=== PATIENT | male | born 1970 | race Caucasian/White ===

== ENCOUNTER 2017-08-16 03:48 | Emergency (ER) | payer SELFPAY ==
[2017-08-16] MEDS ORDERED: Sodium Chloride 0.9% 10 ML Syringe FLUSH PRN (03:58)
[2017-08-16 04:30] LABS: CHLORIDE,CL 102 mmol/L (98-107); SODIUM,NA 141 mmol/L (136-145)
[2017-08-16] MEDS ORDERED: HYDROmorphone 1 MG/ML Syringe IVPUSH ONE ×3 (04:35→07:09)
[2017-08-16] MEDS ORDERED: Ondansetron 4 MG/2 ML SDV IVPUSH ONE (04:37)
--- NOTE | 2017-08-16 04:50 | EDM.PDOC ---
ED HPI GENERAL MEDICAL PROBLEM - General Chief Complaint: Abdominal Pain Stated Complaint: abdominal pain Time Seen by Provider: 08/16/17 04:05 Source of Information: Reports: Patient History Limitations: Reports: No Limitations - History of Present Illness INITIAL COMMENTS - FREE TEXT/NARRATIVE: Patient is a 46-year-old gentleman known to have diverticular disease by history presents to the ER with severe abdominal pain about 8 out of 10 started around 8 PM on 08/15/17 pain described as constant and very uncomfortable. Patient has had other episodes like this in the past but not as severe Onset: Sudden Duration: Hour(s):, Getting Worse Location: Reports: Abdomen Quality: Reports: Stabbing Severity: Severe Improves with: Reports: None Worsens with: Reports: None Context: Reports: Other (Illness) Associated Symptoms: Reports: Nausea/Vomiting Middle Abdomen Pain Score (Numeric/FACES): 8 - Related Data Allergies Allergy/AdvReac Type Severity Reaction Status Date / Time No Known Allergies Allergy Verified 08/16/17 04:38 Past Medical History Gastrointestinal History: Reports: Diverticulosis Other Genitourinary History: Right Kidney removal 1977 Social & Family History - Tobacco Use Smoking Status *Q: Current Every Day Smoker Years of Tobacco use: 30 Packs/Tins Daily: 0.2 - Alcohol Use Days Per Week of Alcohol Use: 7 Number of Drinks Per Day: 5 Total Drinks Per Week: 35 - Recreational Drug Use Recreational Drug Use: No ED ROS GENERAL - Review of Systems Review Of Systems: See Below Constitutional: Reports: Fever, Chills, Weakness HEENT: Reports: No Symptoms Respiratory: Reports: No Symptoms Cardiovascular: Reports: No Symptoms Endocrine: Reports: No Symptoms GI/Abdominal: Reports: Abdominal Pain, Nausea, Vomiting : Reports: No Symptoms Musculoskeletal: Reports: No Symptoms Skin: Reports: No Symptoms Neurological: Reports: No Symptoms Psychiatric: Reports: No Symptoms Hematologic/Lymphatic: Reports: No Symptoms Immunologic: Reports: No Symptoms ED EXAM, GI/ABD - Physical Exam Exam: See Below Exam Limited By: No Limitations General Appearance: Alert, WD/WN, No Apparent Distress Eyes: Bilateral: Normal Appearance, EOMI Ears: Normal External Exam, Normal Canal, Hearing Grossly Normal, Normal TMs Nose: Normal Inspection, Normal Mucosa, No Blood Throat/Mouth: Normal Inspection, Normal Lips, Normal Teeth, Normal Gums, Normal Oropharynx, Normal Voice, No Airway Compromise Head: Atraumatic, Normocephalic Neck: Normal Inspection, Supple, Non-Tender, Full Range of Motion Respiratory/Chest: No Respiratory Distress, Lungs Clear, Normal Breath Sounds, No Accessory Muscle Use, Chest Non-Tender Cardiovascular: Normal Peripheral Pulses, Regular Rate, Rhythm, No Edema, No Gallop, No JVD, No Murmur, No Rub GI/Abdominal Exam: Distended, Guarding, Tender, Abnormal Bowel Sounds ( Hyperactive) (Male) Exam: Deferred Rectal (Males) Exam: Deferred Back Exam: Normal Inspection, Full Range of Motion, NT Extremities: Normal Inspection, Normal Range of Motion, Non-Tender, Normal Capillary Refill, No Pedal Edema Neurological: Alert, Oriented, CN II-XII Intact, Normal Cognition, Normal Gait, Normal Reflexes, No Motor/Sensory Deficits Psychiatric: Normal Affect, Normal Mood Course - Vital Signs Last Recorded V/S: Last Vital Signs Temp 98.4 F 08/16/17 03:55 Pulse 92 08/16/17 07:05 Resp 17 08/16/17 07:05 BP 132/92 H 08/16/17 07:05 Pulse Ox 97 08/16/17 07:05 - Orders/Labs/Meds Orders: Active Orders 24 hr Category Date Time Status Abdomen Pelvis w Cont [CT] Stat Exams 08/16/17 03:56 Ordered Sodium Chloride 0.9% [Normal Saline] 1,000 ml Med 08/16/17 05:00 Ordered IV ASDIRECTED Sodium Chloride 0.9% [Saline Flush] Med 08/16/17 03:58 Active 10 ml FLUSH ASDIRECTED PRN NG [Nasogastric Orogastric Tube Insertion] [OM.PC] Oth 08/16/17 06:02 Ordered Routine Saline Lock Insert [OM.PC] Routine Oth 08/16/17 03:58 Ordered Medication Orders Sodium Chloride (Normal Saline) 1,000 mls @ 500 mls/hr IV ASDIRECTED KERRY Last Admin: 08/16/17 04:55 Dose: 500 mls/hr Sodium Chloride (Saline Flush) 10 ml FLUSH ASDIRECTED PRN PRN Reason: Keep Vein Open Labs: Laboratory Tests 08/16/17 08/16/17 Range/Units 04:07 04:07 WBC 15.1 H (4.0-10.2) K/uL RBC 5.44 H (4.33-5.41) M/uL Hgb 17.5 H D (13.1-16.8) g/dL Hct 50.1 H (39.0-49.0) % MCV 92.1 (84.0-98.0) fL MCH 32.2 (28.2-33.3) pg MCHC 34.9 (31.7-36.0) g/dL RDW 13.5 (11.2-14.1) % Plt Count 269 D (150-350) K/uL Neut % (Auto) 77.2 (45.0-80.0) % Lymph % (Auto) 14.6 (10.0-50.0) % [place] % (Auto) 7.4 (2.0-14.0) % Eos % (Auto) 0.7 (0.0-5.0) % Baso % (Auto) 0.1 (0.0-2.0) % Neut # (Auto) 11.61 H (1.40-7.00) K/uL Lymph # (Auto) 2.20 (0.50-3.50) K/uL [place] # (Auto) 1.11 H (0.00-1.00) K/uL Eos # (Auto) 0.11 (0.00-0.50) K/uL Baso # (Auto) 0.02 (0.00-0.20) K/uL Sodium 141 (136-145) mmol/L Potassium 3.9 (3.5-5.1) mmol/L Chloride 102 (98-107) mmol/L Carbon Dioxide 27.2 (21.0-32.0) mmol/L BUN 17 (7-18) mg/dL Creatinine 0.76 (0.51-1.17) mg/dL Est Cr Clr Drug Dosing 134.33 mL/min Estimated GFR (MDRD) > 60 mL/min Glucose 113 H (74-106) mg/dL Calcium 9.4 (8.5-10.1) mg/dL Meds: Medications Generic Name Dose Route Start Last Admin Trade Name Freq PRN Reason Stop Dose Admin Sodium Chloride 1,000 mls @ 500 mls/hr 08/16/17 05:00 08/16/17 04:55 Normal Saline IV 500 mls/hr ASDIRECTED KERRY Administration Sodium Chloride 10 ml 08/16/17 03:58 Saline Flush FLUSH ASDIRECTED PRN Keep Vein Open Discontinued Medications Generic Name Dose Route Start Last Admin Trade Name Nora PRN Reason Stop Dose Admin Hydromorphone HCl 1 mg 08/16/17 04:35 08/16/17 04:44 Dilaudid IVPUSH 08/16/17 04:36 1 mg ONETIME ONE Administration Hydromorphone HCl 1 mg 08/16/17 05:44 08/16/17 05:48 Dilaudid IVPUSH 08/16/17 05:45 1 mg ONETIME ONE Administration Iopamidol 100 ml 08/16/17 04:51 08/16/17 05:48 Isovue-300 (61%) IVPUSH 08/16/17 04:52 100 ml ONETIME ONE Administration Ondansetron HCl 4 mg 08/16/17 04:37 08/16/17 04:41 Zofran IVPUSH 08/16/17 04:38 4 mg ONETIME ONE Administration Departure - Departure Time of Disposition: 07:12 Disposition: DC/Tfer to Acute Hospital 02 Condition: Fair Clinical Impression: Small bowel obstruction, Abdominal pain - Discharge Information Referrals: Douglas Lucas [employer] [Primary Care Provider] - Forms: ED Department Discharge - Problem List & Annotations (1) Small bowel obstruction SNOMED Code(s): 010373754 Code(s): K56.609 - UNSP INTESTNL OBST, UNSP TO PARTIAL VERSUS COMPLETE OBST Status: Acute Current Visit: Yes Annotation/Comment:: Patient seen in the ER severe abdominal pain evaluated a CT performed revealed small bowel obstruction at this time an NG was placed to low intermittent suction surgery at [place] was called and agreed to take him will sent by ambulance - Problem List Review Problem List Initiated/Reviewed/Updated: Yes - My Orders Last 24 Hours: My Active Orders 08/16/17 03:56 Abdomen Pelvis w Cont [CT] Stat 08/16/17 03:58 Sodium Chloride 0.9% [Saline Flush] 10 ml FLUSH ASDIRECTED PRN Saline Lock Insert [OM.PC] Routine 08/16/17 05:00 Sodium Chloride 0.9% [Normal Saline] 1,000 ml IV ASDIRECTED 08/16/17 06:02 NG [Nasogastric Orogastric Tube Insertion] [OM.PC] Routine - Assessment/Plan Last 24 Hours: My Active Orders 08/16/17 03:56 Abdomen Pelvis w Cont [CT] Stat 08/16/17 03:58 Sodium Chloride 0.9% [Saline Flush] 10 ml FLUSH ASDIRECTED PRN Saline Lock Insert [OM.PC] Routine 08/16/17 05:00 Sodium Chloride 0.9% [Normal Saline] 1,000 ml IV ASDIRECTED 08/16/17 06:02 NG [Nasogastric Orogastric Tube Insertion] [OM.PC] Routine Plan: Transfer to [place] surgery department this was explained to surgery and 2 patient and agreed
[2017-08-16] MEDS ORDERED: Iopamidol 612 MG/ML 100 ML Bottle IVPUSH ONE (04:51)
[2017-08-16] MEDS ORDERED: Sodium Chloride 0.9% 1,000 ML IV SCH ×2 (05:00→07:30)
[2017-08-16] MEDS ORDERED: HYDROmorphone 1 MG/ML Syringe IVPUSH PRN (07:15)
[2017-08-16 09:24] VITALS: BP 140/100
== END 2017-08-16 09:48 ==
LOC: LL.ED 03:48
DX: K56.609 Unspecified intestinal obstruction, unspecified as to partial versus complete obstruction (principal); F17.210 Nicotine dependence, cigarettes, uncomplicated
CPT/HCPCS: 36415; 74177; 80048; 85025; 96361; 96374; 96375; 96376; 99285; J1170; J2405; J7030; Q9967